=== PATIENT | male | born 1975 | race Asian ===

== ENCOUNTER 2017-11-15 10:03 | Emergency (ER) | payer OTHER ==
--- NOTE | 2017-11-15 10:37 | ED ---
Lower Extremity - HPI Summary HPI Summary: Patient here with acute onset left anterior knee/proximal vela pain with area of redness/bruising. This area is tender to touch, swollen. He noticed this yesterday and seems to be worse today. Denies fevers, chills, joint swelling, nausea, vomiting, numbness, tingling, weakness. No known injury to the area including being struck here, walking into an object, kneeling, etc. He reports he was in the lawn yesterday playing with his daughter but does not recall any injury or insect bites. H/o gout and ate shrimp yesterday. He takes a daily anti-gout medication but does not recall the name. He's not sure if this feels the same as gout he's had in the past which has been in his Rt ankle/hip. Otherwise, no previous history of arthritis, septic joint, orthopedic injury to the area, cellulitis or MRSA infections. He has no implantations and his body from previous surgeries. Since pain has started, he's been using a cane to ambulate is weight bearing weight and flexing the knee increase his pain significantly. - History of Current Complaint Chief Complaint: EDExtremityLower Stated Complaint: KNEE PAIN Time Seen by Provider: 11/15/17 10:25 Hx Obtained From: Patient Pain Intensity: 7 - Allergies/Home Medications Allergies/Adverse Reactions: Allergies Allergy/AdvReac Type Severity Reaction Status Date / Time No Known Allergies Allergy Verified 11/15/17 10:18 Home Medications: Home Medications Narcaricin 50mg 50 mg PO DAILY 11/15/17 [History Confirmed 11/15/17] PMH/Surg Hx/FS Hx/Imm Hx Previously Healthy: Yes Endocrine/Hematology History: Denies: Hx Diabetes, Hx Systemic Lupus Erythematosus, Autoimmune Disease Cardiovascular History: Denies: Hx Congestive Heart Failure, Hx Hypertension GI History: Reports: Other GI Disorders - Gout History: Denies: Hx Renal Disease Sensory History: Reports: Hx Contacts or Glasses Opthamlomology History: Reports: Hx Contacts or Glasses Infectious Disease History: No Infectious Disease History: Denies: Traveled Outside the [place] in Last 30 Days - Family History Known Family History: Positive: Other Family History: Stomach CA - Social History Lives: With Family Alcohol Use: None Hx Substance Use: No Substance Use Type: Reports: None Hx Tobacco Use: No Smoking Status (MU): Never Smoked Tobacco Review of Systems Constitutional: Negative Negative: Fever, Chills, Fatigue Genitourinary: Negative Negative: burning, dysuria, discharge, frequency, hematuria - he monitors himself for hematuria with a home device - states his gout medication can cause this, incontinence Positive: Arthralgia, Myalgia, Decreased ROM, Edema Positive: Bruising Neurological: Negative Negative: Weakness, Paresthesia, Numbness Psychological: Normal All Other Systems Reviewed And Are Negative: Yes Physical Exam Triage Information Reviewed: Yes Vital Signs On Initial Exam: Initial Vitals Temp Pulse Resp BP Pulse Ox 98.4 F 75 17 143/91 96 11/15/17 10:15 11/15/17 10:15 11/15/17 10:15 11/15/17 10:15 11/15/17 10:15 Vital Signs Reviewed: Yes Appearance: Positive: Well-Appearing, Well-Nourished, Pain Distress - No pain at rest, however patient reports pain with flexoin of left knee Skin: Positive: Warm, Skin Color Reflects Adequate Perfusion, Dry - quarter sized area of dusky erythema - well defined border, no EM rash appearance - mild edema, very TTP - no central pore or entrance wound, no vesicles, no fluctuance, no streaking Head/Face: Positive: Normal Head/Face Inspection Eyes: Positive: Normal, EOMI ENT: Positive: Hearing grossly normal Neck: Positive: Supple Respiratory/Lung Sounds: Positive: Breath Sounds Present Cardiovascular: Positive: Normal, Pulses are Symmetrical in both Upper and Lower Extremities. Negative: Leg Edema Left, Leg Edema Right Abdomen Description: Positive: Nontender, Soft Musculoskeletal: Positive: Strength/ROM Intact - ankle, hip, toes - no pain w/ ROM in these places but reports ankle ROM tugs on skin of effected area, causing some pain, Limited @ - Lt knee flexion limited d/t pain in this focal area - no knee joint pain Neurological: Positive: Normal Psychiatric: Positive: Normal Diagnostics - Vital Signs Vital Signs Temp Pulse Resp BP Pulse Ox 11/15/17 10:15 98.4 F 75 17 143/91 96 - Laboratory Result Diagrams: 11/15/17 11:00 11/15/17 11:00 Lab Statement: Any lab studies that have been ordered have been reviewed, and results considered in the medical decision making process. Re-Evaluation - Re-Evaluation First Eval Change: Improved Lower Extremity Course/Dx - Diagnoses Provider Diagnoses: Knee pain, left Discharge - Sign-Out/Discharge Documenting (check all that apply): Discharge/Admit/Transfer - Discharge Plan Condition: Stable Disposition: HOME Prescriptions: DOXYcycline CAP(*) [DOXYcycline 100MG CAP(*)] 100 mg PO BID #20 cap Ibuprofen TAB* [Motrin TAB* 600 MG] 600 mg PO Q6H PRN #20 tab PRN Reason: Pain Patient Education Materials: Knee Pain (ED) Referrals: Jah Douglas MD [Primary Care Provider] - Additional Instructions: The definitive cause of your knee pain was not identified today. We discussed the possibility of an early onset abscess as well as possible tick bite. An antibiotic has been prescribed to cover both of these conditions for the next 10 days however you need to follow-up with your PCP this week to review results of your Lyme test ordered here today. If this is positive, you will need to extend your doxycycline treatment plan. If you Lyme test is negative and your area of irritation improves, no further treatment is required. *If your pain and swelling become worse in the meantime, he developed fevers, chills, streaking, joint stiffness, headaches, chest pain, return to the emergency department. NOTE: Your uric acid level is within normal limits today. Continue your uric acid lowering/gout medication as directed and less PCP directs you otherwise. - Billing Disposition and Condition Condition: STABLE Disposition: HOME
[2017-11-15 11:11] LABS: ABS Basophils 0 10^3/ul (0-0.2); ABS Eosinophils 0.1 10^3/ul (0-0.6); ABS Lymphocytes 2.2 10^3/ul (1.0-4.8); ABS Monocytes 0.6 10^3/ul (0-0.8); ABS Neutrophils 5.8 10^3/ul (1.5-7.7); ABS Nucleated RBC 0 10^3/ul; Eosinophil % 0.8 % (0-6); Hematocrit 44 % (42-52); Hemoglobin 14.7 g/dl (14.0-18.0); Lymphocyte % 25.4 % (25-47); Mean Corpuscular HGB Conc 33 g/dl (31-36); Mean Corpuscular Hemoglobin 30 pg (27-31); Mean Corpuscular Volume 90 fL (80-94); Mean Platelet Volume 8.3 um3 (7.4-10.4); Nucleated Red Blood Cells % 0; Platelet Count 282 10^3/ul (150-450); Red Blood Count 4.93 10^6/ul (4.0-5.4); Red Cell Distribution Width 13 % (10.5-15); White Blood Count 8.8 10^3/ul (3.5-10.8)
[2017-11-15 11:26] LABS: EGFR Non-African American 91.6 (>60); Uric Acid 4.4 mg/dL (4.4-7.6)
[2017-11-15] MEDS ORDERED: Indomethacin CAP* 25 MG CAP PO ONE (11:31)
[2017-11-15 13:06] VITALS: BP 134/86
== END 2017-11-15 13:05 | disposition home or self-care (01) ==
LOC: ED 10:03
DX: M25.562 Pain in left knee (principal)
CPT/HCPCS: 36415; 80053; 83605; 84550; 85025; 85652; 86140; 86617; 99282; A9270-GY